=== PATIENT | female | born 2005 | race Caucasian/White ===

== ENCOUNTER 2024-06-24 16:35 | Emergency (ER) | payer MEDICAID, SELFPAY ==
[2024-06-24 16:35] VITALS: BMI 28.1
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
--- NOTE | 2024-06-24 17:15 | PC.NURSE ---
[facility] OFFICER HERE TALKING WITH PT
[2024-06-24 17:52] VITALS: BMI 28.1
[2024-06-24 17:53] VITALS: BP 149/87; PULSE 81; RESP 19; TEMP 36.8; O2SAT 99
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
[2024-06-24 19:39] VITALS: BP 127/64; PULSE 67; RESP 19; TEMP 36.6; O2SAT 99
== END 2024-06-24 19:39 | disposition home or self-care (01) ==
PROVIDERS: Emergency Provider Emergency Medicine; PCP Family Medicine
DX: S70.11XA Contusion of right thigh, initial encounter (principal); S90.01XA Contusion of right ankle, initial encounter; S80.01XA Contusion of right knee, initial encounter; V43.62XA Car passenger injured in collision with other type car in traffic accident, initial encounter
CPT/HCPCS: 73552; 73562; 73600; 99283